=== PATIENT | male | born 1990 | race Two or more races ===

== ENCOUNTER 2023-01-02 15:12 | Emergency (ER) | payer SELFPAY ==
[~2023-01-02] VITALS: Ht 170.2 cm; Wt 68.0 kg
--- NOTE | 2023-01-02 15:45 | NUR ---
EKG NOTED BY DR DELAROSA, BACK TO WR TO WAIT FOR ER BED
--- NOTE | 2023-01-02 16:40 | NUR ---
RECEIVED PT 32 YRS MALE FROM WATING ROOM C/O CHEST PAIN THIS AFTERNOON
--- NOTE | 2023-01-02 17:00 | NUR ---
SEEN BY DR. DELAROSA
--- NOTE | 2023-01-02 17:10 | NUR ---
BLOOD DROW BY LAB TACH
[2023-01-02 17:32] LABS: BASOPHILS % (AUTO) 0.3 % (0.0-2.0); EOSINOPHILS % (AUTO) 0.6 % (0.0-6.0); HEMATOCRIT 47 % (39-51); HEMOGLOBIN 16.3 g/dL (13.5-17.5); LYMPHOCYTES # (AUTO) 1.2 K/uL (0.8-4.8); LYMPHOCYTES % (AUTO) 11.6 % (20.0-44.0); MEAN CORPUSCULAR HGB CONC 34 g/dl (31.0-36.0); MEAN CORPUSCULAR VOLUME 92 fL (80-96); MONOCYTES # (AUTO) 1.4 K/uL (0.1-1.30); MONOCYTES % (AUTO) 13.8 % (2.0-12.0); NEUTROPHILS # (AUTO) 7.5 K/uL (1.8-8.9); NEUTROPHILS % (AUTO) 73.7 % (43.0-81.0); PLATELET COUNT (AUTO) 240 K/uL (150-450); RED BLOOD CELL COUNT(AUTO) 5.13 MIL/uL (4.5-6.0); WHITE BLOOD COUNT (AUTO) 10.2 K/uL (4.3-11.0)
--- NOTE | 2023-01-02 17:45 | NUR ---
RESTING AND ASLEEPY AT THIS TIME
[2023-01-02 17:52] LABS: CALCIUM, SERUM 9.5 mg/dL (8.5-10.1); CARBON DIOXIDE 23 mmol/L (21-32); CHLORIDE 101 mmol/L (98-107); GLUCOSE 102 mg/dL (74-106); POTASSIUM 3.2 mmol/L (3.5-5.1); SODIUM SERUM 137 mmol/L (136-145); UREA NITROGEN, BLOOD 23 mg/dL (7-18)
--- NOTE | 2023-01-02 18:41 | NUR ---
RESTING AND COMFORTABLE AT THIS TIME
--- NOTE | 2023-01-02 19:15 | NUR ---
DR. DELAROSA AT BED SIDE SPOOKING WITH PT ABOUT THE PLAN OF CARE
--- NOTE | 2023-01-02 19:30 | NUR ---
Patient discharged to home in stable condition. Written and verbal after care instructions given. Patient verbalizes understanding of instruction.
[2023-01-02 19:36] VITALS: BP 142/68; TEMP 98.5
== END 2023-01-02 19:36 | disposition home or self-care (01) ==
LOC: ER 15:18
DX: R07.89 Other chest pain (principal)
CPT/HCPCS: 36415; 71045-TC; 80048-TC; 83880; 84484-TC; 85025-TC

== ENCOUNTER 2024-04-03 10:52 | Emergency (ER) | payer MEDICAID ==
[~2024-04-03] VITALS: Ht 157.5 cm; Wt 70.3 kg
[2024-04-03] MEDS ORDERED: oxyCODONE/APAP (5/325 MG) 1 UDTAB TABLET ONE (11:21)
[2024-04-03] MEDS ORDERED: KETOROLAC TROMETHAMINE INJ 30 MG/ML VIAL ONE ×2 (11:21→12:37)
[2024-04-03] MEDS: KETOROLAC TROMETHAMINE INJ 30 MG/ML VIAL IV ONE ×2 (11:23→12:39)
[2024-04-03] MEDS: oxyCODONE/APAP (5/325 MG) 1 UDTAB TABLET PO ONE (11:24)
[2024-04-03] MEDS ORDERED: MORPHINE SULFATE INJ 4 MG/ML DISP.SYRIN ONE (11:49)
[2024-04-03] MEDS: MORPHINE SULFATE INJ 2 MG/ML DISP.SYRIN IV ONE (11:50)
[2024-04-03 13:23] VITALS: BP 124/76; TEMP 97.8; O2SAT 99
== END 2024-04-03 13:23 | disposition home or self-care (01) ==
LOC: ER 10:55 → EDBD 10:55 → ER 13:23
DX: S42.022A Displaced fracture of shaft of left clavicle, initial encounter for closed fracture (principal); F17.200 Nicotine dependence, unspecified, uncomplicated; W18.39XA Other fall on same level, initial encounter; Y93.66 Activity, soccer; Y92.89 Other specified places as the place of occurrence of the external cause; Y99.8 Other external cause status
CPT/HCPCS: 99284; 96374; 96375; 96376; 73060; 71100; 73030; J2270; J1885 ×2; J7030